=== PATIENT | female | born 1960 | race Two or more races ===

== ENCOUNTER 2019-02-12 06:00 | Day surgery (SDC) | payer OTHER | END 2019-02-12 10:45 | disposition home or self-care (01) | LOC: AMB-ENDOS 06:00 → CIR.AMB 12:30 | DX: D12.8 Benign neoplasm of rectum (principal); K64.1 Second degree hemorrhoids ==

== ENCOUNTER 2020-03-10 06:00 | Day surgery (SDC) | payer OTHER | END 2020-03-10 11:00 | disposition still patient (30) | LOC: AMB-ENDOS 06:00 | DX: D12.8 Benign neoplasm of rectum (principal); K64.1 Second degree hemorrhoids ==

== ENCOUNTER 2020-10-20 07:20 | Day surgery (SDC) | payer OTHER | END 2020-10-20 13:10 | disposition home or self-care (01) | LOC: AMB-ENDOS 07:20 | PROVIDERS: ATTEND Colon & Rectal Surgery | DX: K62.89 Other specified diseases of anus and rectum (principal); K64.1 Second degree hemorrhoids; Z20.828 Contact with and (suspected) exposure to other viral communicable diseases ==